=== PATIENT | female | born 1980 | race Caucasian/White ===

== ENCOUNTER 2016-12-30 21:46 | Emergency (ER) | payer OTHER ==
[2016-12-30 22:06] VITALS: RESP 20; TEMP 98.3; O2SAT 97
--- NOTE | 2016-12-30 22:29 | C.PDOC ---
History Of Present Illness 36 year old female who presents to the ER with a complaint of suprapubic pain for the past month associated with yellow vaginal discharge for the past month. Patient has been using OTC cream with no relief and has been having increasing lower abdominal pain and back pain. Patient also reports having a fever last week that resolved on it's own; she note she is sexually active with no form of contraception. Denies dysuria, hematuria, nausea, vomiting, or recent injury/ trauma. Time Seen by Provider: 12/30/16 22:20 Chief Complaint (Nursing): Abdominal Pain History Per: Patient History/Exam Limitations: no limitations Onset/Duration Of Symptoms: Days Current Symptoms Are (Timing): Still Present Location Of Pain/Discomfort: Suprapubic Radiation Of Pain To:: None Quality Of Discomfort: Aching Associated Symptoms: Other (Vaginal discharge). denies: Fever, Chills, Nausea, Vomiting, Urinary Symptoms Exacerbating Factors: None Alleviating Factors: None Recent travel outside of the [place]: No Abnormal Vaginal Bleeding: No Past Medical History Reviewed: Historical Data, Nursing Documentation, Vital Signs Vital Signs: Last Vital Signs Temp 98.3 F 12/30/16 22:03 Pulse 80 12/30/16 22:03 Resp 20 12/30/16 22:03 BP 132/87 12/30/16 22:03 Pulse Ox 97 12/30/16 22:56 - Medical History PMH: No Chronic Diseases Surgical History: No Surg Hx - [facility] Procedures PHARYNGEAL BIOPSY (02/14/13) Family History: States: Unknown Family Hx - Social History Hx Tobacco Use: No Hx Alcohol Use: No Hx Substance Use: No - Immunization History Hx Tetanus Toxoid Vaccination: No Hx Influenza Vaccination: No Hx Pneumococcal Vaccination: No Review Of Systems Constitutional: Negative for: Fever, Chills Gastrointestinal: Positive for: Abdominal Pain. Negative for: Nausea, Vomiting Genitourinary: Positive for: Vaginal Discharge Musculoskeletal: Positive for: Back Pain Neurological: Negative for: Weakness, Numbness Physical Exam - Physical Exam Appears: Non-toxic Skin: Normal Color, Warm, Dry Head: Atraumatic, Normacephalic Gastrointestinal/Abdominal: Soft, Tenderness (suprapubic), No Mass, No Distention, No Guarding Pelvic: Normal External Exam, Normal Speculum Exam, Normal Bimanual Exam, No Vaginal Bleeding, No Vaginal Discharge, No Cervical Motion Tenderness, No Adnexal Tenderness, No Tender Uterus ED Course And Treatment - Laboratory Results Result Diagrams: 12/30/16 22:45 12/30/16 22:45 Lab Interpretation: No Acute Changes O2 Sat by Pulse Oximetry: 97 Pulse Ox Interpretation: Normal Reevaluation Time: 23:19 Reassessment Condition: Improved (Patient remains comfortable) Disposition - Disposition Referrals: [facility] at [facility] [Outside] Disposition: HOME/ ROUTINE Disposition Time: 23:20 Condition: STABLE Additional Instructions: Take Aleve as needed for pain Follow up with the cultures that were sent from the ED. Prescriptions: Doxycycline Monohydrate 100 mg PO BID #20 capsule Instructions: Pelvic Pain in Women (ED) Forms: [facility] (Armenian) - Clinical Impression Clinical Impression: Pelvic pain
[2016-12-30 22:41] LABS: RBC URINE 2 /hpf (0-3); URINE BACTERIA FEW (<OCC); URINE BILIRUBIN NEGATIVE (NEGATIVE); URINE BLOOD NEGATIVE (NEGATIVE); URINE COLOR Yellow (YELLOW); URINE GLUCOSE (UA) NORMAL (Normal); URINE KETONE NEGATIVE (NEGATIVE); URINE PROTEIN NEGATIVE (NEGATIVE); URINE UROBILINOGEN NORMAL mg/dL (0.2-1.0); WBC URINE 9 /hpf (0-5)
[2016-12-30 22:50] LABS: BASO # 0.1 K/uL (0.0-0.2); BASO % 1.1 % (0.0-2.0); EOS # 0.5 K/uL (0.0-0.7); EOS % 4.9 % (0.0-4.0); HEMATOCRIT 36.9 % (34.0-47.0); LYMPH # 2.1 K/uL (1.0-4.3); LYMPH % 21.9 % (20.0-40.0); MEAN CELL VOLUME 83.6 fL (81.0-99.0); MEAN CORPUSCULAR HEMOGLOBIN 28.9 pg (27.0-31.0); MEAN CORPUSCULAR HGB CONC 34.5 g/dL (33.0-37.0); MEAN PLATELET VOLUME 8.6 fL (7.2-11.7); MONO # 0.7 K/uL (0.0-0.8); MONO % 7.3 % (0.0-10.0); RED CELL DISTRIBUTION WIDTH 13.4 % (11.5-14.5); WHITE BLOOD COUNT 9.6 K/uL (4.8-10.8)
[2016-12-30 22:52] LABS: URINE LEUKOCYTE ESTERASE 1+ Leu/uL (Negative)
[2016-12-30 22:58] LABS: CHLORIDE 101 mmol/L (98-107)
[2016-12-30 22:59] LABS: SODIUM 136 mmol/L (132-148)
[2016-12-30 23:01] LABS: AST/SGOT 27 U/L (14-36); BILIRUBIN,TOTAL 0.5 mg/dL (0.2-1.3); CARBON DIOXIDE 26 mmol/L (22-30); GFR AFRICAN-AMERICAN > 60
[2016-12-30 23:02] LABS: ALB/GLOB RATIO 1.3 (1.0-2.1); ALKALINE PHOSPHATASE 62 U/L (38-126); ALT/SGPT 32 U/L (9-52); BLOOD UREA NITROGEN 12 mg/dL (7-17); CALCIUM 8.2 mg/dl (8.6-10.4); GLUCOSE,RANDOM 89 mg/dL (65-105); TOTAL PROTEIN 6.4 g/dL (6.3-8.3)
[2016-12-30 23:22] VITALS: BP 128/82; PULSE 76
== END 2016-12-30 23:31 | disposition home or self-care (01) ==
LOC: C.ER 21:46
DX: R10.2 Pelvic and perineal pain (principal)

== ENCOUNTER 2016-12-31 16:25 | Emergency (ER) | payer OTHER ==
[2016-12-31 16:33] VITALS: RESP 18
[2016-12-31] MEDS ORDERED: cefTRIAXone (Rocephin) 250 mg Inj IM STA (17:09)
[2016-12-31] MEDS ORDERED: Aluminum Hydroxide/Magnesium Hydroxide Susp (30 mL) PO STA (17:10)
[2016-12-31] MEDS ORDERED: Alum-Mag Hydrox-Simethicone Susp (30 mL) ONE (17:16)
--- NOTE | 2016-12-31 17:27 | C.PDOC ---
History Of Present Illness 36 year old female, otherwise well, presents to the ED for re-evaluation of pelvic pain and yellow malodorous vaginal discharge had for one month. Patient was seen yesterday for same complaints, GC/chlamydia was sent and patient was discharge on Doxy. She was called back to ED for inappropriate specimen delivery. Patient notes having similar symptoms one year ago and was treated for a vaginal infeciton. Patient denies sexual intercourse in the last month, fever, chills, or other complaints at this time. Time Seen by Provider: 12/31/16 16:51 Chief Complaint (Nursing): Medical Clearance History Per: Patient History/Exam Limitations: no limitations Onset/Duration Of Symptoms: Persistent (1 month ) Current Symptoms Are (Timing): Still Present Severity: Mild Pain Scale Rating Of: 4 Reports Recently: Seen In ED Recent travel outside of the [place]: No Additional History Per: Prior Records Past Medical History Reviewed: Historical Data, Nursing Documentation, Vital Signs Vital Signs: Last Vital Signs Temp 99.6 F 12/31/16 17:28 Pulse 88 12/31/16 17:28 Resp 18 12/31/16 17:28 BP 130/78 12/31/16 17:28 Pulse Ox 98 12/31/16 17:28 - [facility] Procedures PHARYNGEAL BIOPSY (02/14/13) Family History: States: Unknown Family Hx - Social History Hx Tobacco Use: No Hx Alcohol Use: No Hx Substance Use: No - Immunization History Hx Tetanus Toxoid Vaccination: No Hx Influenza Vaccination: No Hx Pneumococcal Vaccination: No Review Of Systems Constitutional: Negative for: Fever, Chills Cardiovascular: Negative for: Chest Pain Respiratory: Negative for: Shortness of Breath Gastrointestinal: Negative for: Nausea, Vomiting, Diarrhea Genitourinary: Positive for: Vaginal Discharge, Pelvic Pain. Negative for: Dysuria Physical Exam - Physical Exam Appears: Non-toxic, No Acute Distress Skin: Warm, Dry Head: Atraumatic Eye(s): bilateral: Normal Inspection, PERRL, EOMI Oral Mucosa: Moist Neck: Supple Chest: Symmetrical, No Deformity Cardiovascular: Rhythm Regular Respiratory: Normal Breath Sounds Gastrointestinal/Abdominal: Soft, Tenderness (mild suprapubic discomfort ), No Distention, No Guarding, No Rebound Neurological/Psych: Oriented x3, Normal Speech, Normal Cognition, Normal Cranial Nerves, Normal Motor, Normal Sensation ED Course And Treatment O2 Sat by Pulse Oximetry: 97 (room air ) Progress Note: Patient was given precautionary STD treatment and instructed to follow up with DIVER ASSISTANT. Disposition Counseled Patient/Family Regarding: Need For Followup, Rx Given - Disposition Referrals: [facility] [Outside] Disposition: HOME/ ROUTINE Disposition Time: 17:25 Condition: STABLE Additional Instructions: You must follow up with your doctor or our clinic. Take the medications as indicated. Return to the Emergency Department if symptoms worsen. Prescriptions: Ibuprofen [Motrin] 600 mg PO TID #15 tab Instructions: Pelvic Pain (ED), Vaginal Discharge (ED) Forms: [employer] (Jordanian), General Discharge Instructions - POA Present On Arrival: None - Clinical Impression Clinical Impression: Pelvic pain - Scribe Statement The provider has reviewed the documentation as recorded by the Scribe Tracy Darden All medical record entries made by the Borisibe were at my direction and personally dictated by me. I have reviewed the chart and agree that the record accurately reflects my personal performance of the history, physical exam, medical decision making, and the department course for this patient. I have also personally directed, reviewed, and agree with the discharge instructions and disposition.
[2016-12-31 17:29] VITALS: BP 130/78; PULSE 88; TEMP 99.6
[2016-12-31 20:04] VITALS: O2SAT 97
== END 2016-12-31 17:31 | disposition home or self-care (01) ==
LOC: C.ER 16:25
DX: R10.2 Pelvic and perineal pain (principal)
CPT/HCPCS: 96372; 99282; J0696

== ENCOUNTER 2017-01-13 03:17 | Emergency (ER) | payer OTHER ==
[2017-01-13 03:35] VITALS: RESP 18
--- NOTE | 2017-01-13 04:25 | C.PDOC ---
History Of Present Illness 36 yo female come in for evaluation of pruritic rash developed today. Pt sts." just got new bed and I saw bed bugs there". Pt sts, have buts all over the body and feels chills from it. Otherwise, pt denies fever, chills, dizziness, throat swelling or tightness, CP, SOB, dyspnea, diaphoresis, palpitation, abd. pain, N/ V/D, swelling. Noted, pt was seen recently IN ED on 12/30/16 when was placed on abx tx sec to vaginal discharges. Pt admits, last dose of abx was yesterdya. Time Seen by Provider: 01/13/17 03:35 Chief Complaint (Nursing): Abnormal Skin Integrity History Per: Patient Onset/Duration Of Symptoms: Gradual Past Medical History Reviewed: Historical Data, Nursing Documentation, Vital Signs Vital Signs: Last Vital Signs Temp 97.7 F 01/13/17 03:24 Pulse 83 01/13/17 03:24 Resp 18 01/13/17 03:24 BP 113/73 01/13/17 03:24 Pulse Ox 96 01/13/17 04:35 - Medical History PMH: No Chronic Diseases Surgical History: No Surg Hx - [facility] Procedures PHARYNGEAL BIOPSY (02/14/13) Family History: States: Unknown Family Hx - Social History Hx Tobacco Use: No Hx Alcohol Use: No Hx Substance Use: No - Immunization History Hx Tetanus Toxoid Vaccination: No Hx Influenza Vaccination: No Hx Pneumococcal Vaccination: No Review Of Systems Except As Marked, All Systems Reviewed And Found Negative. Constitutional: Negative for: Fever, Chills Eyes: Negative for: Vision Change, Redness ENT: Negative for: Mouth Swelling, Throat Pain, Throat Swelling Cardiovascular: Negative for: Chest Pain Respiratory: Negative for: Cough, Shortness of Breath, Wheezing Gastrointestinal: Negative for: Nausea, Vomiting, Abdominal Pain Genitourinary: Negative for: Dysuria, Frequency Skin: Positive for: Rash Neurological: Negative for: Weakness, Numbness, Altered Mental Status, Headache , Dizziness Physical Exam - Physical Exam Appears: Well, Non-toxic, No Acute Distress Skin: Normal Color, Warm, Rash (scattered over body, extrimities and face erythematous papular rash, blenchable, No cellulitis, no edema.) Head: Normacephalic Eye(s): bilateral: PERRL Ear(s): Bilateral: Normal Nose: No Flaring, No Discharge Oral Mucosa: Moist, No Drooling Tongue: Normal Appearing, No Swelling Lips: Normal Appearing, No Swelling Throat: No Erythema, No Exudate, No Drooling, Other (Uvula midline,no edema.) Neck: Normal ROM Cardiovascular: Rhythm Regular, No JVD Respiratory: No Decreased Breath Sounds, No Accessory Muscle Use, No Stridor, No Wheezing Gastrointestinal/Abdominal: Soft, No Tenderness Extremity: Normal ROM, No Pedal Edema, No Deformity Neurological/Psych: Oriented x3, Normal Speech ED Course And Treatment O2 Sat by Pulse Oximetry: 96 Pulse Ox Interpretation: Normal Progress Note: On re-evaluation, pt is afebrile, hemodynamicaly stable. Non- toxic. Tolerate Po well in ED. PulsEOx 96% RA. ENT: No acute findings, uvula midline, no edema. Neck: Supple. Lungs: CTA B/L, BS equal B/L. Abd: bengn. Pt has clinical findings c/w rash r/o allergic reaction to doxycycline. Unlikely insect bite due to generalized distribution of rash. Pt advised on course of ds, avoid doxycyline in future.. ref. to f/u with PMD, ALlergen in 2 - 3 days for re-eavl. return to ED if any worsening or new changes. Disposition Counseled Patient/Family Regarding: Diagnosis, Need For Followup, Rx Given - Disposition Referrals: [facility] [Outside] Disposition: HOME/ ROUTINE Disposition Time: 04:29 Condition: STABLE Additional Instructions: CLEAN BED AND SHEETS STOP ANTIBIOTIC AND AVOID USE IN FUTURE DUE TO POSSIBLE ALLERGIC REACTION. TAKE MEDICATION PRESCRIBED FOLLOW UP WITH PMD, SALES PROJECT COORDINATOR IN 2 DAYS FOR RE-EVALUATION. RETURN TO ED IF ANY WORSENING OR NEW CHANGES. Prescriptions: DiphenhydrAMINE [Benadryl] 25 mg PO BID #10 cap Famotidine [Pepcid] 20 mg PO BID #10 tab Prednisone [Deltasone] 40 mg PO DAILY #6 tablet Instructions: Allergies (ED) Forms: [employer] (Hungarian) - Clinical Impression Clinical Impression: Allergy to antibiotic
[2017-01-13] MEDS ORDERED: MethylPREDNISolone 40 mg Vial ONE (04:50)
[2017-01-13 04:56] VITALS: BP 114/77; PULSE 67; TEMP 97.6; O2SAT 100
== END 2017-01-13 05:05 | disposition home or self-care (01) ==
LOC: C.ER 03:17
DX: L27.1 Localized skin eruption due to drugs and medicaments taken internally (principal); T36.95XA Adverse effect of unspecified systemic antibiotic, initial encounter
CPT/HCPCS: 96372; 99283; J2930

== ENCOUNTER 2017-11-27 13:43 | Emergency (ER) | payer OTHER ==
[2017-11-27 13:43] VITALS: BMI 36.9
[2017-11-27 14:02] VITALS: BP 120/80; PULSE 70; RESP 20; TEMP 98.2; O2SAT 97
--- NOTE | 2017-11-27 14:30 | C.PDOC ---
History Of Present Illness 37 year old female presents to the ER with a complaint of recurring vaginal itch for a month. Patient states she had similar symptoms prior to 12/2016. Patient states she is monogamous, has unprotected sex, and notes has occasional pelvic pain. Denies rash or discharge. CO RECUR VAG ITCH X 1 MO. PS SIM TO PRIOR 12/2016. NO RASH, DC. PS MONOGAMOUS, UNPROT SEX. OCC PELVIC PAIN. NO VAG DC EXAM NAD NONTOXIC SHAVED. +MILD EXT ERYTHEMA. NO LESIONS. SPECULUM EXAM: NO VAG DC REMAINDER NEG Time Seen by Provider: 11/27/17 14:13 Chief Complaint (Nursing): Female Genitourinary History Per: Patient History/Exam Limitations: no limitations Current Symptoms Are (Timing): Still Present Quality Of Discomfort: Unable To Describe Associated Symptoms: denies: Other (Rash or discharge) Alleviating Factors: None Recent travel outside of the [place]: No Abnormal Vaginal Bleeding: No Past Medical History Reviewed: Historical Data, Nursing Documentation, Vital Signs Vital Signs: Last Vital Signs Temp 98.2 F 11/27/17 13:58 Pulse 70 11/27/17 13:58 Resp 20 11/27/17 13:58 BP 120/80 11/27/17 13:58 Pulse Ox 97 11/27/17 14:56 Surgical History: No Surg Hx - [facility] Procedures PHARYNGEAL BIOPSY (02/14/13) Family History: States: Unknown Family Hx - Social History Hx Tobacco Use: No Hx Alcohol Use: No Hx Substance Use: No - Immunization History Hx Tetanus Toxoid Vaccination: No Hx Influenza Vaccination: No Hx Pneumococcal Vaccination: No Review Of Systems Except As Marked, All Systems Reviewed And Found Negative. Constitutional: Negative for: Fever, Chills Genitourinary: Positive for: Vaginal Discharge, Pelvic Pain, Rash Physical Exam - Physical Exam Appears: Non-toxic, No Acute Distress Skin: Warm, Dry Head: Atraumatic, Normacephalic Eye(s): bilateral: Normal Inspection Oral Mucosa: Moist Chest: Symmetrical, No Tenderness Cardiovascular: Rhythm Regular Respiratory: Normal Breath Sounds, No Rales, No Rhonchi, No Wheezing Gastrointestinal/Abdominal: Soft, No Tenderness Pelvic: Normal Speculum Exam (No vaginal discharge), Other (Shaved, mild external erythema, no lesions) Neurological/Psych: Oriented x3, Normal Speech ED Course And Treatment - Laboratory Results Urine POC: Negative O2 Sat by Pulse Oximetry: 97 Medical Decision Making Medical Decision Making: Patient advised she was previously diagnosed and treated as STD during December 2016, she states she did not realize because she did not read her paperwork. Patient reports recurrent vaginal itching multiple times a year but never followed up with [facility] [employer], patient offered translation service but refused, she expresses verbal understanding of instructions and medications. Disposition Counseled Patient/Family Regarding: Diagnosis, Need For Followup, Rx Given - Disposition Referrals: [facility] [Outside] [facility] [Outside] Disposition: HOME/ ROUTINE Disposition Time: 14:47 Condition: GOOD Prescriptions: Clotrimazole/Betamethasone [Lotrisone] 15 gm EXT BID #1 tube Instructions: Vulvar Itching Forms: [facility] (Kenyan) - Clinical Impression Clinical Impression: Itching in the vaginal area - Scribe Statement The provider has reviewed the documentation as recorded by the Scribe Matias Francis All medical record entries made by the Scribe were at my direction and personally dictated by me. I have reviewed the chart and agree that the record accurately reflects my personal performance of the history, physical exam, medical decision making, and the department course for this patient. I have also personally directed, reviewed, and agree with the discharge instructions and disposition.
[2017-11-27 14:42] LABS: URINE BILIRUBIN NEGATIVE (NEGATIVE); URINE BLOOD NEGATIVE (NEGATIVE); URINE CLARITY Clear (Clear); URINE COLOR Yellow (YELLOW); URINE GLUCOSE (UA) NORMAL (Normal); URINE LEUKOCYTE ESTERASE NEG Leu/uL (Negative); URINE PROTEIN NEGATIVE (NEGATIVE); URINE UROBILINOGEN NORMAL mg/dL (0.2-1.0)
== END 2017-11-27 14:51 | disposition home or self-care (01) ==
LOC: C.ER 13:43
DX: N89.9 Noninflammatory disorder of vagina, unspecified (principal)